=== PATIENT | female | born 1970 | race Caucasian/White ===

== ENCOUNTER → 2022-03-03 11:15 | Outpatient (BNVA) | payer OTHER, SELFPAY | PROVIDERS: PCP Internal Medicine; Referring Provider Internal Medicine; Visit Provider Surgery | DX: K80.20 Calculus of gallbladder without cholecystitis without obstruction (principal); E11.69 Type 2 diabetes mellitus with other specified complication; E66.09 Other obesity due to excess calories; Z68.29 Body mass index [BMI] 29.0-29.9, adult; I12.9 Hypertensive chronic kidney disease with stage 1 through stage 4 chronic kidney disease, or unspecified chronic kidney disease; E11.22 Type 2 diabetes mellitus with diabetic chronic kidney disease; N18.30 Chronic kidney disease, stage 3 unspecified; F17.210 Nicotine dependence, cigarettes, uncomplicated; Z79.4 Long term (current) use of insulin | CPT/HCPCS: 99212 ==

== ENCOUNTER 2022-03-21 01:27 | Emergency (ER) | payer OTHER, SELFPAY ==
--- NOTE | ~2022-03-21 | US_ITS ---
EXAMINATION: US ABDOMEN LIMITED CLINICAL INFORMATION: Right upper quadrant pain. Nausea and vomiting.. COMPARISON: None TECHNIQUE: Real-time imaging of the right upper quadrant abdominal viscera. FINDINGS: Study limited by patient ability to cooperate. PANCREAS: The pancreatic head and body are unremarkable. The tail is obscured by gas. LIVER: Normal. The liver is normal in size. The liver contour is normal. Parenchymal echogenicity is normal. No focal hepatic lesion. There is no intrahepatic biliary duct dilatation seen. GALLBLADDER: Stones and sludge in the gallbladder lumen. No wall thickening or pericholecystic fluid. COMMON BILE DUCT: Normal in caliber measuring 0.3 cm in diameter. RIGHT KIDNEY: Normal. No hydronephrosis. No renal calculi or focal parenchymal lesions. The kidney measures 11.9 cm in maximum dimension. FREE FLUID: None. US/US abdomen limited IMPRESSION: Stones and sludge in the gallbladder lumen without inflammatory changes seen.
[2022-03-21 01:35] VITALS: BP 260/140; PULSE 91; O2SAT 96
[2022-03-21 01:40] VITALS: BP 187/95; PULSE 91; RESP 24; O2SAT 98; BMI 29.9
[2022-03-21] MEDS: Ondansetron ODT 4 MG TAB.RAPDIS TRANSLINGU (01:54)
[2022-03-21 01:56] LABS: Glucose, Whole Blood 241 mg/dL (60-115)
[2022-03-21 02:12] LABS: MANUAL DIFF FLAG NO
[2022-03-21 02:13] LABS: Basophils Percent Auto 0.4 % (0-2); Eosinophils Absolute Auto 0.2 X10*3/uL (0.0-0.4); Hematocrit 41.2 % (37.0-47.0); Hemoglobin 14.2 g/dl (12.0-16.0); Imm Gran Abs Auto 0.05 X10*3/uL (0.00-0.03); Imm Gran Pct Auto 0.5 % (0.0-0.4); Lymphocytes Absolute Auto 2.6 X10*3/uL (1.2-4.9); Mean Corpuscular HGB Conc 34.5 g/dl (31.0-35.0); Mean Corpuscular Hemoglobin 29.2 pg (27.0-33.0); Mean Corpuscular Volume 84.8 fL (80.0-98.0); Mean Platelet Volume 9.5 fL (9.4-12.3); Monocytes Absolute Auto 0.7 X10*3/uL (0.1-1.2); Monocytes Percent Auto 7.4 % (2-11); Neutrophils Absolute Auto 6.3 x10*3/uL (2.0-8.3); Neutrophils Percent Auto 63.7 % (45-73); Platelet Count 311 X10*3/uL (160-400); Red Blood Count 4.86 X10*6/uL (4.20-5.50); Red Cell Distribution Width 12.6 % (11.0-16.0); White Blood Count 9.9 X10*3/uL (4.8-10.8)
[2022-03-21 02:28] LABS: Lactic Acid 1.6 mmol/L (0.5-2.0)
[2022-03-21 02:32] LABS: Alanine Aminotransferase 14 U/L (0-31); Albumin Level 4.4 g/dL (3.5-5.0); Alkaline Phosphatase 90 U/L (39-117); Anion Gap 13 (12-20); Aspartate Amino Transferase 11 U/L (5-31); Bilirubin Total 0.7 mg/dL (0.0-1.0); Blood Urea Nitrogen 16 mg/dL (9-16); Calcium 10.1 mg/dL (8.4-10.2); Carbon Dioxide 26 mmol/L (22-29); Chloride 105 mmol/L (96-108); Creatinine Clr Calc Pharmacy 92.1; Estimated Glomerular Filt Rate > 60; Glucose Random 270 mg/dL (60-115); Potassium 3.9 mmol/L (3.3-5.1); Sodium 140 mmol/L (135-145)
--- NOTE | 2022-03-21 02:37 | ED_ITS ---
HPI - Abdominal Pain General Chief Complaint: Abdominal Pain Stated Complaint: abd pain/detox Time Seen by Provider: 03/21/22 02:19 Source: patient and family (Mother) Mode of arrival: EMS History of Present Illness HPI narrative: 52-year-old female with history diabetes, polysubstance use, depression, who presents via EMS for multiple episodes of nausea and vomiting at home as well as right upper quadrant pain and states she has not eaten for about 4 days and drinking very little. She also reports that she has had chills as well as diarrhea but denies any urinary symptoms. Patient reports her last heroin use was 3 days ago but she is on a methadone program. She denies any alcohol use but is an everyday smoker of cigarettes. Related Data Home Medications Medication Instructions Recorded Confirmed alprazolam 2 mg tablet mg PO 10/14/20 10/08/21 bupropion HCl 300 mg 24 hr tablet, 300 mg PO DAILY 10/14/20 10/08/21 extended release quetiapine 50 mg tablet 50 mg PO BEDTIME PRN 10/14/20 10/08/21 gabapentin 300 mg capsule 300 mg PO Q4-5H cap 10/27/20 10/08/21 bupropion HCl 150 mg 24 hr tablet, 150 mg PO QAM 03/03/22 extended release methadone 10 mg/mL oral concentrate 3 mg PO DAILY ml 03/03/22 quetiapine 25 mg tablet mg PO 03/03/22 Previous Rx's Medication Instructions Recorded insulin glargine 100 unit/mL (3 100 unit SUBCUT QPM 30 Days #30 ml 02/04/22 mL) subcutaneous pen (Lantus Solostar U-100 Insulin) insulin lispro 100 unit/mL 20 unit (0.2 mL) SUBCUT TID #15 ml 02/04/22 subcutaneous pen (Admelog SoloStar U-100 Insulin lispro) lisinopril 40 mg tablet 40 mg PO DAILY #90 cap 02/04/22 needle (disp) 30 gauge 30 gauge x #100 ea 02/04/22 1 (BD Specialty Use [place]) pen needle, diabetic 31 gauge x #150 ea 02/04/22 3/16 atorvastatin 40 mg tablet 40 mg PO DAILY #30 cap 02/05/22 metformin 1,000 mg tablet 1,000 mg PO BID #60 cap 02/05/22 blood sugar diagnostic (FreeStyle #100 ea 02/23/22 Lite Strips) ketoconazole 2 % shampoo 1 appl TOPICAL 2XW #120 ml 02/23/22 lidocaine 4 % topical patch 1 patch TOPICAL DAILY PRN #10 ea 02/23/22 (Aspercreme (lidocaine)) ondansetron 4 mg disintegrating 4 mg PO Q6H PRN #4 tab 03/21/22 tablet Allergies Allergy/AdvReac Type Severity Reaction Status Date / Time No Known Allergies Allergy Verified 03/03/22 11:25 Review of Systems Review of Systems Pertinent positives and negatives as stated in HPI 10 point review of systems otherwise negative. [facility] Past Medical History Source: nursing notes reviewed Medical History Cholelithiasis Chronic kidney disease, stage 3 unspecified Essential (primary) hypertension Hypercholesterolemia Major depressive disorder, single episode, unspecified Nicotine dependence, cigarettes, uncomplicated Other obesity due to excess calories Substance use disorder Type 2 diabetes mellitus without complications Surgical History History of breast lump/mass excision Total knee replacement status Family History Family History Father Diabetes Hypertension Hyperlipidemia Mother Diabetes Hypertension Hyperlipidemia Maternal Aunt Breast cancer Maternal Uncle Myocardial infarction Other Mental health disorder Substance use disorder Social History Social History Housing: Apartment Alcohol intake: never Patient Tobacco Use Status: Current everyday Tobacco user Tobacco use type: Cigarette Cigarettes Per Day: 15 e-Cigarette/Vaping Use: Never Used Second Hand Smoke Exposure: Yes Advance Directives: No service: No Current occupational status: disabled Cognitive needs: Yes (cane/walker) Hearing needs: No Vision needs: Yes (reading glasses) Physical Exam ED Vital Signs: Vital Signs - 24 hr 03/21/22 01:40 03/21/22 04:11 Pulse Rate 91 85 Respiratory Rate 24 H 12 Blood Pressure 187/95 H Pulse Oximetry 98 95 BMI result Body Mass Index 29.9 VITAL SIGNS: Reviewed. GENERAL: Appears older than stated age, chronically ill, in no acute distress. HEAD: Normocephalic/atraumatic EYES: PERRLA, EOMI EARS: Ext canals without abnormality OROPHARYNX: no oral lesions noted, posterior pharynx clear LUNGS: Normal breath sounds. No adventitious sounds or accessory muscle use. SpO2<98> CARDIOVASCULAR: Regular rate and rhythm without noted murmurs, no JVD or lower extremity edema. ABDOMEN: Soft, right upper quadrant pain, non-distended with bowel sounds. MUSCULOSKELETAL: No tenderness, deformities, or effusions noted on gross inspec tion. EXTREMITIES: No cyanosis, clubbing or edema. SKIN: Inspection of the skin reveals no rashes NEUROLOGIC: Alert and oriented x 4. Strength and sensation to light touch were grossly intact x 4. Course Course Course Narrative: 52-year-old female with history and clinical presentation suggestive of possible acute cholecystitis, review of all investigations no evidence to suggest DKA or HHS but patient prior has a mild component of dehydration for which she will received 2 L of IV fluids and undergo right upper quadrant ultrasound. Review of all investigations otherwise negative for acute findings other than recurrent finding cholelithiasis. Patient states she is feeling much better now is otherwise stable for discharge home. MDM - Abdominal Pain Lab Data Result diagrams: 03/21/22 01:56 03/21/22 01:56 Labs: Lab Results 03/21/22 03/21/22 03/21/22 Range/Units 01:50 01:56 01:56 WBC 9.9 (4.8-10.8) X10*3/uL RBC 4.86 (4.20-5.50) X10*6/uL Hgb 14.2 (12.0-16.0) g/dl Hct 41.2 (37.0-47.0) % MCV 84.8 (80.0-98.0) fL MCH 29.2 (27.0-33.0) pg MCHC 34.5 (31.0-35.0) g/dl RDW 12.6 (11.0-16.0) % Plt Count 311 (160-400) X10*3/uL MPV 9.5 (9.4-12.3) fL Immature Gran % (Auto) 0.5 H (0.0-0.4) % Neut % (Auto) 63.7 (45-73) % Lymph % (Auto) 26.0 (20-40) % Peach % (Auto) 7.4 (2-11) % Eos % (Auto) 2.0 (0-4) % Baso % (Auto) 0.4 (0-2) % Lymph # (Auto) 2.6 (1.2-4.9) X10*3/uL Peach # (Auto) 0.7 (0.1-1.2) X10*3/uL Eos # (Auto) 0.2 (0.0-0.4) X10*3/uL Baso # (Auto) 0.0 (0.0-0.2) X10*3/uL Abs Immat Gran (auto) 0.05 H (0.00-0.03) X10*3/uL Absolute Neuts (auto) 6.3 (2.0-8.3) x10*3/uL Absolute Nucleated RBC 0.000 (0.0-0.012) X10*3/uL Nucleated RBC % (auto) 0.0 (0.0-0.2) /100WBC Sodium 140 (135-145) mmol/L Potassium 3.9 (3.3-5.1) mmol/L Chloride 105 (96-108) mmol/L Carbon Dioxide 26 (22-29) mmol/L Anion Gap 13 (12-20) BUN 16 (9-16) mg/dL Creatinine 0.87 (0.5-1.4) mg/dL Estim Creat Clear Calc 92.1 Estimated GFR > 60 POC Glucose 241 H (60-115) mg/dL Random Glucose 270 H (60-115) mg/dL Lactic Acid (0.5-2.0) mmol/L Calcium 10.1 (8.4-10.2) mg/dL Total Bilirubin 0.7 (0.0-1.0) mg/dL AST 11 (5-31) U/L ALT 14 (0-31) U/L Alkaline Phosphatase 90 (39-117) U/L Total Protein 7.0 (6.5-8.0) g/dL Albumin 4.4 (3.5-5.0) g/dL Lipase 11 (8-78) U/L Ethyl Alcohol mg/dL COVID-19 (JOSE) (Negative) COVID-19 Clin Com Influenza Type A (JACKLYN) (Negative) Influenza Type B (JACKLYN) (Negative) Influenza A & B Note 03/21/22 03/21/22 03/21/22 Range/Units 01:56 01:57 02:49 WBC (4.8-10.8) X10*3/uL RBC (4.20-5.50) X10*6/uL Hgb (12.0-16.0) g/dl Hct (37.0-47.0) % MCV (80.0-98.0) fL MCH (27.0-33.0) pg MCHC (31.0-35.0) g/dl RDW (11.0-16.0) % Plt Count (160-400) X10*3/uL MPV (9.4-12.3) fL Immature Gran % (Auto) (0.0-0.4) % Neut % (Auto) (45-73) % Lymph % (Auto) (20-40) % Peach % (Auto) (2-11) % Eos % (Auto) (0-4) % Baso % (Auto) (0-2) % Lymph # (Auto) (1.2-4.9) X10*3/uL Peach # (Auto) (0.1-1.2) X10*3/uL Eos # (Auto) (0.0-0.4) X10*3/uL Baso # (Auto) (0.0-0.2) X10*3/uL Abs Immat Gran (auto) (0.00-0.03) X10*3/uL Absolute Neuts (auto) (2.0-8.3) x10*3/uL Absolute Nucleated RBC (0.0-0.012) X10*3/uL Nucleated RBC % (auto) (0.0-0.2) /100WBC Sodium (135-145) mmol/L Potassium (3.3-5.1) mmol/L Chloride (96-108) mmol/L Carbon Dioxide (22-29) mmol/L Anion Gap (12-20) BUN (9-16) mg/dL Creatinine (0.5-1.4) mg/dL Estim Creat Clear Calc Estimated GFR POC Glucose (60-115) mg/dL Random Glucose (60-115) mg/dL Lactic Acid 1.6 (0.5-2.0) mmol/L Calcium (8.4-10.2) mg/dL Total Bilirubin (0.0-1.0) mg/dL AST (5-31) U/L ALT (0-31) U/L Alkaline Phosphatase (39-117) U/L Total Protein (6.5-8.0) g/dL Albumin (3.5-5.0) g/dL Lipase (8-78) U/L Ethyl Alcohol < 10 mg/dL COVID-19 (JOSE) (Negative) COVID-19 Clin Com Influenza Type A (JACKLYN) Negative (Negative) Influenza Type B (JACKLYN) Negative (Negative) Influenza A & B Note See Note 03/21/22 Range/Units 02:49 WBC (4.8-10.8) X10*3/uL RBC (4.20-5.50) X10*6/uL Hgb (12.0-16.0) g/dl Hct (37.0-47.0) % MCV (80.0-98.0) fL MCH (27.0-33.0) pg MCHC (31.0-35.0) g/dl RDW (11.0-16.0) % Plt Count (160-400) X10*3/uL MPV (9.4-12.3) fL Immature Gran % (Auto) (0.0-0.4) % Neut % (Auto) (45-73) % Lymph % (Auto) (20-40) % Peach % (Auto) (2-11) % Eos % (Auto) (0-4) % Baso % (Auto) (0-2) % Lymph # (Auto) (1.2-4.9) X10*3/uL Peach # (Auto) (0.1-1.2) X10*3/uL Eos # (Auto) (0.0-0.4) X10*3/uL Baso # (Auto) (0.0-0.2) X10*3/uL Abs Immat Gran (auto) (0.00-0.03) X10*3/uL Absolute Neuts (auto) (2.0-8.3) x10*3/uL Absolute Nucleated RBC (0.0-0.012) X10*3/uL Nucleated RBC % (auto) (0.0-0.2) /100WBC Sodium (135-145) mmol/L Potassium (3.3-5.1) mmol/L Chloride (96-108) mmol/L Carbon Dioxide (22-29) mmol/L Anion Gap (12-20) BUN (9-16) mg/dL Creatinine (0.5-1.4) mg/dL Estim Creat Clear Calc Estimated GFR POC Glucose (60-115) mg/dL Random Glucose (60-115) mg/dL Lactic Acid (0.5-2.0) mmol/L Calcium (8.4-10.2) mg/dL Total Bilirubin (0.0-1.0) mg/dL AST (5-31) U/L ALT (0-31) U/L Alkaline Phosphatase (39-117) U/L Total Protein (6.5-8.0) g/dL Albumin (3.5-5.0) g/dL Lipase (8-78) U/L Ethyl Alcohol mg/dL COVID-19 (JOSE) Negative (Negative) COVID-19 Clin Com See Note Influenza Type A (JACKLYN) (Negative) Influenza Type B (JACKLYN) (Negative) Influenza A & B Note Discharge Plan Discharge Clinical Impression: Gastroenteritis, Cholelithiasis Patient Disposition: Home, Self-Care Instructions: Gastroenteritis (ED), Gallstones (ED) Additional Instructions: Resume all home medications as prescribed. Follow-up with your primary care provider on Tuesday morning for re-evaluation and further outpatient management. Return to the ER for worsening symptoms. Prescriptions: New ondansetron 4 mg tablet,disintegrating 4 mg PO Q6H PRN (Reason: nausea and vomiting) Qty: 4 0RF No Action metformin 1,000 mg tablet 1,000 mg PO BID Qty: 60 3RF atorvastatin 40 mg tablet 40 mg PO DAILY Qty: 30 3RF ketoconazole 2 % shampoo 1 appl topical 2XW Qty: 120 0RF lidocaine [Aspercreme (lidocaine HCl)] 4 % adhesive patch,medicated 1 patch topical DAILY PRN (Reason: pain) Qty: 10 0RF (DME) FreeStyle Lite Strips Strip See Rx Instructions .ROUTE .MEDSUPPLY Qty: 100 0RF Hold Instructions: Doctor's Order Rx Instructions: bid bupropion HCl 300 mg tablet extended release 24 hr 300 mg PO DAILY 0RF alprazolam 2 mg tablet PO 0RF quetiapine 50 mg tablet 50 mg PO BEDTIME PRN0RF gabapentin 300 mg capsule 300 mg PO Q4-5H 0RF methadone 10 mg/mL concentrate 3 mg PO DAILY 0RF Lantus Solostar U-100 Insulin 100 unit/mL (3 mL) insulin pen 100 unit subcut QPM 30 Days Qty: 30 1RF insulin lispro [Admelog SoloStar U-100 Insulin] 100 unit/mL insulin pen 20 unit subcut TID Qty: 15 1RF lisinopril 40 mg tablet 40 mg PO DAILY Qty: 90 1RF (DME) BD Specialty Use [place] 30 gauge x 1 needle See Rx Instructions .ROUTE .MEDSUPPLY Qty: 100 3RF Rx Instructions: Use 4 times daily (DME) pen needle, diabetic 31 gauge x 3/16 needle See Rx Instructions ea subcut .MEDSUPPLY Qty: 150 12RF Rx Instructions: As directed 4x daily bupropion HCl 150 mg tablet extended release 24 hr 150 mg PO QAM 0RF quetiapine 25 mg tablet PO 0RF
[2022-03-21 02:46] LABS: Ethanol < 10 mg/dL
[2022-03-21] MEDS: 0.9 % Sodium Chloride 2,000 ML 999 ML IV (02:54)
[2022-03-21] MEDS: ondansetron HCL 4 MG/2 ML VIAL IVPUSH (02:54)
[2022-03-21 02:58] LABS: Lipase 11 U/L (8-78)
[2022-03-21 03:19] LABS: COVID-19 Test Negative (Negative); IDNOW Serial# 16C4AD1C; Influenza A Negative (Negative); Influenza B2 Negative (Negative)
[2022-03-21] MEDS: Ketorolac Tromethamine 30 MG/ML VIAL 15 MG IVPUSH (03:35)
[2022-03-21 04:11] VITALS: PULSE 85; RESP 12; O2SAT 95
--- NOTE | 2022-03-21 05:24 | PC.NURSE ---
Pt denies nausea Pt given water for PO challenge Per pt, took sips of water earlier and tolerated well Will continue to monitor
[2022-03-21] MEDS: hydrOXYzine HCL 50 MG TABLET PO (05:58)
[2022-03-21] MEDS: Dicyclomine HCl 10 MG CAPSULE PO (05:58)
== END 2022-03-21 06:08 | disposition home or self-care (01) ==
PROVIDERS: Emergency Provider Student in an Organized Health Care Education/Training Program
DX: K52.9 Noninfective gastroenteritis and colitis, unspecified (principal); K80.20 Calculus of gallbladder without cholecystitis without obstruction; E11.22 Type 2 diabetes mellitus with diabetic chronic kidney disease; I12.9 Hypertensive chronic kidney disease with stage 1 through stage 4 chronic kidney disease, or unspecified chronic kidney disease; N18.30 Chronic kidney disease, stage 3 unspecified; F11.20 Opioid dependence, uncomplicated; Z20.822 Contact with and (suspected) exposure to COVID-19
CPT/HCPCS: 36415; 76705; 80053; 82077; 82947; 83605; 83690; 85025; 87502; 87635; 96361; 96374; 96375; 99284; J1885; J2405